=== PATIENT | male | born 2000 | race Caucasian/White ===

== ENCOUNTER 2021-02-05 18:30 | Emergency (ER) | payer BC, SELFPAY ==
[2021-02-05 18:31] VITALS: BP 143/87; PULSE 87; RESP 18; TEMP 36.6; O2SAT 98; BMI 28.7
--- NOTE | 2021-02-05 18:49 | HMH.EDUTC ---
[facility] [place]: Exposure to COVID-19 virus Disposition: Home, Self-Care Condition on Discharge: Good Instructions: Preventing the Spread of Coronavirus Discharge Instructions Additional Instructions: Drink plenty of fluids. Take tylenol for pain or fever. Return if you begin to have difficulty breathing. Follow up with your regular doctor. GO TO THE ER FOR ANY WORSENING SYMPTOMS Referrals: Provider,Referral, MD [Primary Care Provider] - Forms: Work/School Release Time of Disposition: 18:51 Medical Decision Making - Medical Records Medical records reviewed: No: I reviewed the patient's medical records. - Justo Inquiry Pt receiving controlled substance: No Vital Signs: 02/05/21 18:31 02/05/21 19:19 Temperature 97.9 F 97.9 F Temperature Source Oral Pulse Rate 87 Pulse Rate [Right] 87 Respiratory Rate 18 18 Blood Pressure 143/87 H Blood Pressure [Right Arm] 143/87 H Blood Pressure Mean [Right Arm] 105 02 Sat by Pulse Oximetry 98 Oxygen Delivery Method Room Air [facility] [place] - General Stated complaint: covid test Time Seen by Provider: 02/05/21 18:49 Mode of Arrival: Ambulatory Source of Information: Patient Limitations: No Limitations Description of Symptoms (Recalled from Triage Doc. by RN): pt was directly exposed to covid positive friend last week. pt is asymptomatic. HEENT Symptoms (Recalled from RN notes): No Resp Symptoms (Recalled from RN notes): No Skin Symptoms (Recalled from RN notes): No MS Symptoms (Recalled from RN notes): No Functional Status (Recalled from RN notes): na - History of Present Illness Provider Complaint: He states that he was exposed to covid-19 last week. He just found out today that he was exposed. He denies any symptoms so far. - Related Data Home Medications Medication Instructions Recorded Confirmed cetirizine 10 mg tablet 10 mg PO DAILY 02/26/19 02/26/19 Previous Rx's Medication Instructions Recorded ofloxacin 0.3 % ear drops 10 drp OTIC DAILY 7 Days #5 ml 03/23/19 Allergies Allergy/AdvReac Type Severity Reaction Status Date / Time No Known Allergies Allergy Verified 03/23/19 17:17 - Worker's Comp Is this a Worker's Comp case?: No [facility] History - Hepatitis A Screen Drug use history?: No High risk sexual behaviors?: No History of sexually transmitted infection?: No Currently employed?: No Childcare worker?: No Do you have indoor plumbing?: Yes Do you have electricity?: Yes Attestation statement:: This patient has been screened for Hepatitis A risk factors. I have reviewed the patient's past medical history: Yes Other Surgeries: Yes: No Previous Surgery Amputation: No Fractures: No - Social History Smoking Status: Never smoker Alcohol Intake: never Alcohol Intake Frequency:: 0-2 drinks per day Substance Use Type: denies use Occupational Status: unemployed Housing: house Household Members: family Family Hx:: No significant family history ROS Obtained: Yes All systems reviewed & no additional complaints - Constitutional Constitutional: Reports system reviewed and no additional complaints, except as docu - Eyes Eyes: Reports system reviewed and no additional complaints, except as docu - ENT Ears, Nose, Mouth, and Throat: Reports system reviewed and no additional complaints, except as docu - Cardiovascular Cardiovascular: Reports system reviewed and no additional complaints, except as docu - Respiratory Respiratory: Reports system reviewed and no additional complaints, except as docu - Gastrointestinal Gastrointestingal: Reports: system reviewed and no additional complaints, except as docu Physical Exam - General General appearance: alert, in no apparent distress - Head Head exam: atraumatic, normocephalic, normal inspection - Eye Eye exam: Present: normal appearance, PERRL, EOMI - ENT ENT exam: Present: normal exam, normal oropharynx, mucous membranes moist
[2021-02-05 19:19] VITALS: BP 143/87; PULSE 87; RESP 18; TEMP 36.6
== END 2021-02-05 19:21 | disposition home or self-care (01) ==
PROVIDERS: Emergency Provider Nurse Practitioner Family
DX: Z20.822 Contact with and (suspected) exposure to COVID-19 (principal)
CPT/HCPCS: 99202; G0463; U0003

== ENCOUNTER 2021-10-08 10:16 | Emergency (ER) | payer BC, SELFPAY ==
[2021-10-08 10:24] VITALS: BP 147/90; PULSE 74; RESP 16; TEMP 36.8; O2SAT 99; BMI 28.7
[2021-10-08 10:57] VITALS: BP 147/90; PULSE 74; RESP 16; TEMP 36.8; O2SAT 99; BMI 28.7
--- NOTE | 2021-10-08 11:02 | HMH.EDUTC ---
[facility] [place]: Hand laceration Qualifiers: Encounter type: initial encounter Foreign body presence: unspecified Laterality: right Qualified Code(s): S61.411A - Laceration without foreign body of right hand, initial encounter Disposition: Home, Self-Care Condition on Discharge: Good Instructions: Laceration Repair, DI for Laceration Repair, DI for Laceration Repair -- Simple Additional Instructions: Suture instructions: You have required stitches today. Please read the following instructions so you know how to care for them: 1. Keep wound area dry for the first 24 hours. 2 May clean gently with mild soap and water, after 48 hours to prevent crusting over suture knots. 3. You may shower if your provider gives permission but do not take a bath until the skin is healed.. 4. Never leave a wet dressing or Band-Aid on your stitches as this allows bacteria to reach the area and may cause infection. Band-aids can cause the wound to sweat and not recommended to wear for long periods of time Watch for signs of infection: Increasing redness, tenderness or warmth around the suture site Unusual swelling around the site Appearance of pus around each suture or any red streaks Fever If you develop any of the above signs or symptoms of infection, Follow up with Family Physician immediately 5. Suture removal in _7-10___days 6. Return to [facility] or follow up with family doctor for removal. This can be done by any medical provider during regular hours on Tuesday through Tuesday, by appointment. Prescriptions: Amoxicillin/Potassium Clav [Augmentin 500mg tab] 500 mg PO TID #21 tab Transmission Status: Pending to [facility]/pharmacy #[id number] Referrals: Provider,Referral, [Primary Care Provider] - Time of Disposition: 11:22 Medical Decision Making - Justo Inquiry Pt receiving controlled substance: No Justo was queried for this patient: No Vital Signs: 10/08/21 10:24 10/08/21 10:57 Temperature 98.2 F 98.2 F Temperature Source Oral Oral Pulse Rate [Left Radial] 74 74 Respiratory Rate 16 16 Blood Pressure [Left Arm] 147/90 H 147/90 H Blood Pressure Mean [Left Arm] 109 109 Blood Pressure Source [Left Arm] Automatic Cuff Automatic Cuff Blood Pressure Position [Left Arm] Sitting Sitting 02 Sat by Pulse Oximetry 99 99 Oxygen Delivery Method Room Air Room Air Orders (Tests/Meds): ED MEDICATIONS Discontinued Medications Generic Name Dose Route Start Last Admin Trade Name Karolian PRN Reason Stop Dose Admin Tetanus/Diphtheria Toxoids 0.5 ml 10/08/21 11:03 10/08/21 11:08 Tetanus-Diphth Toxoid, Adult 0.5ml Syr IM 10/08/21 11:04 0.5 ml .ONCE ONE Administration [facility] [place] - General Stated complaint: AO 10/08 rt hand laceration Time Seen by Provider: 10/08/21 11:02 Mode of Arrival: Ambulatory Source of Information: Patient Limitations: No Limitations Description of Symptoms (Recalled from Triage Doc. 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 No active bleeding noted at this time. - History of Present Illness Provider Complaint: Patient state that he cut his hand on a piece of metal at work earler State that it bleed pretty good and after they got it stopped noticed it looked like it may need stitches and he needed a tetanus shot so he came in - Related Data Home Medications Medication Instructions Recorded Confirmed cetirizine 10 mg tablet 10 mg PO DAILY 02/26/19 02/26/19 Previous Rx's Medication Instructions Recorded ofloxacin 0.3 % ear drops 10 drp OTIC DAILY 7 Days #5 ml 03/23/19 Amoxicillin/Potassium Clav 500 mg PO TID #21 tab 10/08/21 [Augmentin 500mg tab] Allergies Allergy/AdvReac Type Severity Reaction Status Date / Time No Known Allergies Allergy Verified 03/23/19 17:17 [facility] History - Hepatitis A Screen Attestation statement:: This patient has been screened for Hepatitis A risk factors. I have review
[2021-10-08 11:30] VITALS: BP 147/90; PULSE 74; RESP 16; TEMP 36.8; O2SAT 99
== END 2021-10-08 11:30 | disposition home or self-care (01) ==
LOC: ER 10:33 → UTC 10:34
PROVIDERS: Emergency Provider Nurse Practitioner
DX: S61.411A Laceration without foreign body of right hand, initial encounter (principal); W26.8XXA Contact with other sharp object(s), not elsewhere classified, initial encounter; Y92.69 Other specified industrial and construction area as the place of occurrence of the external cause; Y99.0 Civilian activity done for income or pay; Z23 Encounter for immunization
CPT/HCPCS: 12001; 90471; 90714; 99202; G0463